=== PATIENT | male | born 1960 | race Caucasian/White ===

== ENCOUNTER 2025-04-03 11:20 | Outpatient (AMB) | payer MEDICARE, SELFPAY ==
--- NOTE | 2025-04-03 09:46 | A.OFFPC_ITS ---
Vital Signs 04/03/25 11:28 Height 5 ft 11.26 in Weight 232 lb BMI 32.1 BP 154/74 H Blood Pressure Location Lt brachial Position Sitting Respiration 20 Pulse 73 Pulse Source Pulse Oximeter Temp 97.3 F Temp Source Temporal Artery Scan Pulse Oximetry (%) 93 Oxygen Delivery Method Room Air Intake Visit Reasons: New Patient/ Establish Care Mechanical Technician Required: No Accompanied by: Self / Same As Patient Allergies No Known Allergies Allergy (Unknown, Verified 04/03/25 09:46) Medication List - Last Reconciled 04/03/25 by Krishna Parada MD atorvastatin 40 mg PO DAILY fluoxetine 60 mg PO QAM ibuprofen (IBU) mg PO multivitamin 1 tab PO DAILY Tobacco use date assessed: 04/03/25 Fall risk assessment: No Falls in past year Last assessed Fall Risk: 04/03/25 Dental Screening Dental Screen Date: 04/03/25 Did you have a dental visit in the last 12 months?: No Did you have a dental problem in the last 6 months where you did not have access to dental care?: Yes Was dental information given to patient?: Patient has dentist HPI HPI Comments History of Present Illness Details The patient is a 64-year-old male presenting for a new patient visit and an annual physical examination. He reports a past medical history of high cholesterol, kidney stones, and depression, for which he takes a medication but questions the diagnosis. The patient has a 40-year history of smoking. He started in the 1980s, smoking one pack per day for about 10 years, then gradually reduced his use to the current level of two to three cigarettes per day, equating to about a pack a week. He notes he can go for two or three weeks without a cigarette. He reports an increase in urinary frequency, particularly nocturia, waking up two times per night to urinate, which is an increase from once per night a few years ago. He denies straining and notes that his symptoms are exacerbated by coffee and beer consumption and improve when he keeps his fluid intake down. Family history is significant for a father who of a heart attack and an older brother who was recently diagnosed with Alzheimer's disease. Regarding substance use, he drinks about a six-pack of beer per week, typically over the weekend, and denies any illicit drug use. The patient reports no surgeries. His last colonoscopy was approximately five years ago, and he is due for another. Medical History: - Hypercholesterolemia - History of nephrolithiasis - History of depression Surgical History: - No surgeries reported Medications: - Unspecified medication for depression Family History: - Father: of a heart attack. - Brother: Recently diagnosed with Alzhe ewa's disease. - No family history of diabetes or cance rs reported. Diagnostic Results: - Blood Pressure: 154/74 mmHg (today). Social History: - Tobacco Use: Current smoker with a 40- year history; he now smokes about a pack a week (2-3 cigarettes per day), having cut down from a pack a day for about 10 years. - Alcohol Use: Drinks a six-pack of beer per week, consumed over the weekend. - Substance Use: Denies use of heroin, m arijuana, or cocaine. - Employment: Has a varied work history, including sales, warehouse work, and working in a [employer]. - Weight: Reports a weight loss of appro ximately 15 pounds over the last couple of years, from 245 lbs to 230 lbs. [facility] Medical History (Updated 04/03/25 @ 11:59 by Krishna Parada MD) Lower urinary tract symptoms Hyperlipidemia Hypertension Tobacco use disorder, continuous Annual physical exam Social History Housing: House Patient Tobacco Use Status: Current someday Tobacco user Tobacco use type: Cigarette Cigarettes Per Day: 2 Years Smoked: off and on for 40 years e-Cigarette/Vaping Use: Never Used service: No Current occupational status: unemployed Questionnaire PHQ-9 Over the last 2 weeks, how often have you been bothered by any of the following problems? 1. Little interest or pleasure in doing things: not at all 2. Feeling down, depressed, or hopeless: not at all 3. Trouble falling or staying asleep, or sleeping too much: not at all 4. Feeling tired or having little energy: not at all 5. Poor appetite or overeating: not at all 6. Feeling bad about yourself - or that you are a failure or have let yourself or your family down: not at all 7. Trouble concentrating on things, such as reading the newspaper or watching television: not at all 8. Moving or speaking so slowly that other people could have noticed. Or the opposite - being so fidgety or restless that you have been moving around a lot more than usual: not at all 9. Thoughts that you would be better off or of hurting yourself in some way: not at all Total score: 0 Depression Screening Interpretation: Negative Depression Screening Done: Yes 13770 - PHQ-9 Billing: Yes Source: Developed by Drs. Roby Lewis, Wendy Dillon, Mendoza Norton and colleagues, with an educational [place] from [employer]. Thrive Questionnaire Date Thrive assessed: 04/03/25 I am a: Patient What is your living situation today?: I have a steady place to live Within the past 12 months, did the food you bought not last and you didn't have the money to get more?: Never true Within the past 12 months, did you worry whether your food would run out before you got money to buy more?: Never true Do you have trouble paying for medicines?: No Do you have trouble getting transportation to medical appointments?: No Do you have trouble paying your heating and electricity bill?: No Do you have trouble taking care of your child, family member or friend?: No Do you have trouble with day-to-day activities such as bathing, preparing meals, shopping, managing finances, etc.?: No Are you currently unemployed and looking for a job?: No Are you interested in more education?: No THRIVE Score: 0 AUDIT C Alcohol Use Questionnaire (AUDIT-C) 1. How often do you have a drink containing alcohol?: 2-4 times a month 2. How many drinks containing alcohol do you have on a typical day when you are drinking?: 3 or 4 3. How often do you have six or more drinks on one occasion?: Never (rarely) Total Score: 3 Score Reviewed/Action Taken: Yes LAURA-7 AMB Questionnaire LAURA-7 Date LAURA - 7 assessed: 04/03/25 Feeling nervous, anxious, or on edge: 0 = Not at all Not being able to stop or control worryin = Not at all Worrying too much about different things: 0 = Not at all Trouble relaxin = Not at all Being so restless that it is hard to sit still: 0 = Not at all Becoming easily annoyed or irritable: 0 = Not at all Feeling afraid as if something awful might happen: 0 = Not at all Total LAURA-7 score (0-4 normal; 5-9 mild; 10-14 moderate; 15-21 severe): 0 Source: Developed by Drs. Roby Lewis, Wendy Dillon, Mendoza Norton and colleagues, with an educational virginia from [employer]. LAURA-7 Assessment Billing LAURA-7 Assessment Tool: LAURA-7 Assessment 53356 Review of Systems Narrative - Constitutional: Denies unintentional weight loss; reports losing about 15 pounds over the last couple years. - Genitourinary: Reports increased urinary frequency and nocturia (twice per night). - Psychiatric: Reports a very good mood; denies feeling down, depressed, or anxious. - GI: Reports normal bowel movements. - Skin: Reports easy bruising. - Musculoskeletal: Denies leg swelling. - Allergic/Immunologic: Denies medication and seasonal allergies. All systems reviewed & are unremarkable except as reviewed in HPI and above Physical exam (Primary Care) Vital Signs: Last Vital Signs Temp 97.3 F 04/03/25 11:28 Pulse 73 04/03/25 11:28 Resp 20 04/03/25 11:28 BP 154/74 H 04/03/25 11:28 Pulse Ox 93 04/03/25 11:28 Oxygen Delivery Method Room Air 04/03/25 11:28 BMI result Body Mass Index 32.1 Tobacco/Smoking Status: Tobacco use Status Tobacco use date assessed 04/03/25 04/03/25 09:47 Patient Tobacco Use Status Current someday Tobacco 04/03/25 11:31 Tobacco use type Cigarette 04/03/25 11:31 e-Cigarette/Vaping Use Never Used 04/03/25 11:31 Depression Screening Interpretation: Negative Narrative General: Alert and oriented, Well nourished, No acute distress. Eye: Pupils are equal, round and reactive to light, Intact accommodation, Extraocular movements are intact, Normal conjunctiva, Vision unchanged. HENT: Normocephalic, Atraumatic, Tympanic membranes are clear, Normal hearing, Oral mucosa is moist, No pharyngeal erythema, Ear canals patent. Respiratory: Lungs CTA bilaterally, No wheeze, Respirations are non-labored. Cardiovascular: Regular rate, Regular rhythm, S1 auscultated, S2 auscultated, No murmur, Good pulses equal in all extremities, Normal peripheral perfusion, No edema. Gastrointestinal: Soft, Non-tender, Non-distended, Normal bowel sounds, No organomegaly. Musculoskeletal: Normal range of motion, Normal strength, No tenderness, No swelling, No deformity, Normal gait. Integumentary: Warm, Dry, [place], Intact. Neurologic: Alert, Oriented, Normal sensory, Normal motor function, No focal defects, Cranial Nerves II-XII are grossly intact, Normal deep tendon reflexes. Psychiatric: Cooperative, Appropriate mood & affect, Normal judgment. Coding Level of Care Code New Pt Level 4 (86009) New Pt Prev Care >65yr (15882) Diagnoses Primary hypertension I10 Hypertension type: primary hypertension Tobacco use disorder, continuous F17.209 Other hyperlipidemia E78.49 Hyperlipidemia type: other hyperlipidemia Lower urinary tract symptoms R39.9 Annual physical exam Z00.00 Additional Codes PHQ-9 - 28341 - PHQ-9 Billing: Yes ([id number]) LAURA-7 Assessment Billing - LAURA-7 Assessment Tool: LAURA-7 Assessment 07976 ([id number]) Comment [id number] Assessment & Plan Assessment & Plan (1) Hypertension: Comment: - The patient has a new diagnosis of hypertension with a reading of 154/74 mmHg. - This is concerning, given his family history of heart disease and concurrent hyperlipidemia. - He will be started on amlodipine 2.5 mg daily. - He is instructed to monitor his blood pressure at home for two weeks and bring a log to his follow-up visit. - The dose will be adjusted if his pressures remain elevated. Code(s): I10 - Essential (primary) hypertension Category: Medical Qualifiers: Hypertension type: primary hypertension Qualified Code(s): I10 - Essential (primary) hypertension (2) Tobacco use disorder, continuous: Comment: - The patient has a significant, approximately [id number] smoking history, which qualifies him for lung cancer screening. - A referral for a low-dose CT scan of the lungs will be placed. - He was counseled on the importance of complete smoking cessation. - Nicotine replacement therapy with reaq-hep-[id number] patches was offered, and the patient will consider this option. Code(s): F17.209 - Nicotine dependence, unspecified, with unspecified nicotine-induced disorders Category: Medical (3) Hyperlipidemia: Comment: Being managed with atorvastatin 40mg QHS by her prevoius PCP. Will obtain lipid panel today Code(s): E78.5 - Hyperlipidemia, unspecified Category: Medical Qualifiers: Hyperlipidemia type: other hyperlipidemia Qualified Code(s): E78.49 - Other hyperlipidemia (4) Lower urinary tract symptoms: Comment: - The patient reports nocturia and increased urinary frequency, likely due to benign prostatic hyperplasia and behavioral factors. - The initial management will be behavioral changes, including reducing fluid intake 4-5 hours before bedtime and ensuring complete bladder emptying. - If there is no improvement at his two-week follow-up, medical therapy will be considered. Code(s): R39.9 - Unspecified symptoms and signs involving the genitourinary system Category: Medical (5) Annual physical exam: Comment: - A comprehensive set of labs, including electrolytes, CBC, blood sugar, lipid panel, hepatitis and HIV screening, urinalysis, syphilis test, TSH, and vitamin D levels, will be ordered. - The patient is due for a colonoscopy, as his last one was five years ago, and a referral will be placed. - The patient's COVID and flu vaccinations are up to date. - He is advised to maintain a healthy diet and stay active. - A follow-up visit is scheduled in two weeks to review lab results and his blood pressure log. Code(s): Z00.00 - Encounter for general adult medical examination without abnormal findings Category: Medical Plan: Health Maintenance: - Colon Cancer Screening: Patient is due for a colonoscopy, as his last was 5 years ago. A referral will be placed. - Lung Cancer Screening: Due to a significant smoking history (~18 pack-years), the patient qualifies for annual low-dose CT screening. A referral will be placed. - Immunizations: Patient reports he is up to date on COVID and flu shots, having received them within the last month. - Smoking Cessation: Patient was strongly counseled on quitting. Nicotine patch therapy was discussed as an option. - Healthy Lifestyle: Patient was advised to eat healthy, drink healthy, and remain active. - Laboratory Screening: Ordered a comprehensive panel including electrolytes, CBC, sugars, hepatitis panel, HIV, cholesterol, urinalysis, syphilis, thyroid, and vitamin D levels. Patient was informed and verbally consented to the use of an ambient scribe for clinic note documentation during this visit. Vital signs reviewed. Comprehensive history, review of systems, and physical exam completed. Medications, allergies, and problem list reviewed and updated. Counseling provided on nutrition, regular exercise, sleep hygiene, and moderation of alcohol use. Discussed age-appropriate screenings (mammogram, colonoscopy, Pap, bone density) and immunizations (flu, COVID, shingles, Tdap). Screened for depression, fall risk, and home safety; no current concerns. Discussed stress management, dental and vision care, and importance of ongoing preventive follow-up. Routine labs ordered for metabolic and lipid screening. Patient educated on healthy lifestyle and agrees with the plan. Plan I discussed with the patient that this was his first visit to the practice and would serve as an annual physical exam. We reviewed his new diagnosis of hypertension, noting his blood pressure of 154/74 mmHg, and the associated risks given his family history of heart disease and high cholesterol. I recommended starting amlodipine 2.5 mg daily and instructed him on home blood pressure monitoring for two weeks. We extensively discussed his significant smoking history of about 18 pack-years, which qualifies him for annual lung cancer screening with a low-dose CT scan, for which I am placing a referral. I strongly advised complete smoking cessation and discussed nicotine replacement therapy with zcmc-fkf-[id number] patches, which he is considering. We addressed his increased urinary frequency, explaining it is likely behavioral. I advised him to begin with behavioral modifications, including reducing fluid intake in the hours before bed, with a plan to consider medication if symptoms do not improve in two weeks. We also discussed overdue health maintenance, and he agreed to proceed with a colonoscopy, for which I will place a referral. I informed him that a comprehensive panel of bloodwork has been ordered and discussed follow-up in two weeks to review all results and his blood pressure log. Orders: Orders Comprehensive Met. Panel Today Z00.00 - Encounter for general adult medical examination without abnormal findings Hepatitis A,B,C Profile Today Z00.00 - Encounter for general adult medical examination without abnormal findings Lipid Panel Today Z00.00 - Encounter for general adult medical examination without abnormal findings TSH reflex Free T4 Today Z00.00 - Encounter for general adult medical examination without abnormal findings Vitamin D 25-OH Total Today Z00.00 - Encounter for general adult medical examination without abnormal findings Complete Blood Count Auto Diff Today Z00.00 - Encounter for general adult medical examination without abnormal findings Hemoglobin A1c Today Z00.00 - Encounter for general adult medical examination without abnormal findings HIV Ab/Ag Today Z00.00 - Encounter for general adult medical examination without abnormal findings Microalbumin, Random (w Creat) Today Z00.00 - Encounter for general adult medical examination without abnormal findings Syphilis Screen Today Z00.00 - Encounter for general adult medical examination without abnormal findings Referrals Lung Cancer Screening Referral F17.209 - Nicotine dependence, unspecified, with unspecified nicotine-induced disorders Open Access Screening Colonoscopy Referral Z12.11 - Encounter for screening for malignant neoplasm of colon Medications: New fluoxetine 60 mg orally Take 1 in the AM & 2 in the PM; amlodipine 2.5 mg PO DAILY 30 tabs 0RF Patient Instructions: - You are being started on a new medication, amlodipine 2.5 mg, to be taken once every morning for high blood pressure. - Please purchase a blood pressure cuff from a pharmacy and check your blood pressure every day for the next two weeks. Please write down the readings and bring the log to your next appointment. - It is very important that you quit smoking. You can buy nicotine patches [id number]-coguhiw to help you with this. - To help with waking up at night to urinate, try to stop drinking fluids 4-5 ho urs before you go to bed and make sure to completely empty your bladder before sleeping. - Please go to the lab to have your blood drawn. All the orders have been sent. - You will be contacted to schedule a colonoscopy and a lung cancer screening (a CT scan of your chest). - Please follow up in the clinic in two weeks to review your lab results and blood pressure readings. - Continue to eat a healthy diet and stay active.
[2025-04-03 11:28] VITALS: BP 154/74; PULSE 73; RESP 20; TEMP 36.3; O2SAT 93; BMI 32.1
--- OUTSIDE RECORDS SUMMARY | 2025-04-03 14:05 | XMS_ITS | Patient Health Record ---
Author [facility] [place] Address [address] [address] Care Team Providers Care Telegraph Office Route Aide Name Role Phone Tamir Mccracken MD Primary Care Provider Ian Lazar Unavailable [phone] Reason For Referral No Information Medications Medication SIG (Take, Route, Fr equency, Duration) Notes Start Date End Date Status Fluoxetine Active Atorvastatin Calcium Active Vitamin D Active Aspirin Active Social History Tobacco Use: Social History Observation Description Date Details (start date - stop date) Current Smoker NA - NA Tobacco Use/Smoking Question Answer Notes Are you a: current smoker How often do you smoke cigarettes? every day How many cigarettes a day do you smoke? 6-10 How soon after you wake up d o you smoke your first cigarette? after 60 minutes Are you interested in quitting? Thinking about q uitting Additional Findings: Tobacco User Light cigarett e smoker ((1-9 cigs/day) Alcohol Screen Question Answer Notes Did you have a drink containing alcohol in the p ast year? Yes Points 0 Interpretation Negative Tobacco use other than smoking: Question Answer Notes Are you an other tobacco user? No Plan Of Treatment Pending Test Test Name Order Date X ray : Foot, left 2V 07/05/2016 X ray : Foot, right 2V 07/05/2016 X ray : Foot, left 3V 07/15/2014 [id number] Destruction, -07/15/2014 85156-Kijk Destruction, -07/05/2016 03712-Rppt Destruction, -08/02/2016 13072-Gehi Destruction, -06/01/2017 73344-Imdd Destruction, 06-0506/29/2017 04394-Hzbv Destruction, 06-0509/12/2017 90565-Ynwn Destruction, 06-0512/29/2017 Insurance Providers Payer Name Payer Address Payer Phone Subscriber Number Group Number Insured Name Patient Relationship to Insured Coverage Start Date Coverage End Date [facility] [address] [facility] [place] [id number] Jace Perez Self - patient is the insured Medical (General) History Medical History History ICD Code Measles Cholesterol Surgical History Surgery Date(Month/Year)
== END 2025-04-03 11:59 | disposition home or self-care (01) ==
PROVIDERS: PCP Student in an Organized Health Care Education/Training Program; Visit Provider Student in an Organized Health Care Education/Training Program
DX: Z00.00 Encounter for general adult medical examination without abnormal findings (principal); I10 Essential (primary) hypertension; F17.209 Nicotine dependence, unspecified, with unspecified nicotine-induced disorders; E78.49 Other hyperlipidemia; R39.9 Unspecified symptoms and signs involving the genitourinary system

== ENCOUNTER 2025-04-03 12:06 | Outpatient (REF) | payer MEDICARE, SELFPAY ==
[2025-04-03 13:38] LABS: MANUAL DIFF FLAG NO
[2025-04-03 13:40] LABS: Alanine Aminotransferase 64 U/L (0-40); Albumin Level 4.3 g/dL (3.5-5.0); Alkaline Phosphatase 104 U/L (39-117); Anion Gap 10 (12-20); Aspartate Amino Transferase 49 U/L (5-37); Blood Urea Nitrogen 15 mg/dL (9-16); Calcium 9.5 mg/dL (8.4-10.2); Carbon Dioxide 29 mmol/L (22-29); Chloride 107 mmol/L (96-108); Cholesterol 171 mg/dL (<200); Estimated Glomerular Filt Rate > 60; HDL Cholesterol 56 mg/dL (>40); Potassium 4.5 mmol/L (3.3-5.1); Sodium 141 mmol/L (135-145); Total Protein 7.0 g/dL (6.5-8.0); Triglycerides 56 mg/dL (<150)
[2025-04-03 13:46] LABS: Hematocrit 44.9 % (42.0-52.0); Hemoglobin 15.3 g/dl (14.0-18.0); Imm Gran Abs Auto 0.03 X10*3/uL (0.00-0.03); Imm Gran Pct Auto 0.4 % (0.0-0.4); Lymphocytes Absolute Auto 1.7 X10*3/uL (1.2-4.9); Mean Corpuscular HGB Conc 34.1 g/dl (31.0-36.0); Mean Corpuscular Hemoglobin 33.0 pg (27.0-33.0); Mean Corpuscular Volume 96.8 fL (80.0-98.0); NRBC Abs Auto 0.000 X10*3/uL (0.0-0.012); NRBC Pct Auto 0.0 /100WBC (0.0-0.2); Platelet Count 230 X10*3/uL (160-400); Red Blood Count 4.64 X10*6/uL (4.60-5.80); White Blood Count 6.9 X10*3/uL (4.8-10.8)
[2025-04-03 14:20] LABS: Microalbum/Creatinine Ratio Ur 7.9 ug/mg cr (<30)
[2025-04-04 03:36] LABS: Syphilis Screen Nonreactive (Nonreactive)
[2025-04-04 03:57] LABS: HBS Num1 1.49 mIU/mL (0-7.99); HBc Num1 0.05 S/CO (0.00-0.79); HBsAGNum1 0.42 S/CO (0.00-0.99); HIV Num 1 0.06 S/CO (0.00-0.99); Hepatitis A Antibody IgM 0.18 Index (0-0.79); Hepatitis B Surface Antigen Negative (Negative); ~HepC Num1 0.06 S/CO (0.00-0.79); ~Hepatitis A Antibody IgM Nonreactive (Nonreactive); ~Hepatitis B Surface Antibody NONREACTIVE (Nonreactive); ~Hepatitis C Antibody Nonreactive (Nonreactive)
== END 2025-04-03 12:07 | disposition home or self-care (01) ==
LOC: HO.10HDL 12:06
PROVIDERS: Visit Provider Student in an Organized Health Care Education/Training Program
DX: Z00.00 Encounter for general adult medical examination without abnormal findings (principal); E78.00 Pure hypercholesterolemia, unspecified; F32.A Depression, unspecified; F17.210 Nicotine dependence, cigarettes, uncomplicated; R35.1 Nocturia; I10 Essential (primary) hypertension; E78.49 Other hyperlipidemia; R74.8 Abnormal levels of other serum enzymes; Z13.1 Encounter for screening for diabetes mellitus
CPT/HCPCS: 36415; 80053; 80061; 82043; 82306; 82570; 83036; 84443; 85025; 86704; 86706; 86709; 86780; 86803; 87340; 87389; 96127; 99202; 99387

== ENCOUNTER 2025-04-17 10:07 | Outpatient (AMB) | payer MEDICARE, SELFPAY ==
--- NOTE | 2025-04-17 10:08 | A.OFFPC_ITS ---
Vital Signs 04/17/25 10:08 Height 5 ft 11.6 in Intake Visit Reasons: Annual Senior Credit Analyst Required: No Accompanied by: Self / Same As Patient Allergies No Known Allergies Allergy (Unknown, Verified 04/17/25 10:09) Medication List - Last Reconciled 04/17/25 by Krishna Parada MD atorvastatin 40 mg PO DAILY fluoxetine 60 mg orally Take 1 in the AM & 2 in the PM; ibuprofen (IBU) mg PO multivitamin 1 tab PO DAILY Tobacco use date assessed: 04/03/25 Dental Screening Dental Screen Date: 04/03/25 HPI HPI Comments History of Present Illness Details History of Present Illness The patient is a 64 year old individual presenting for a follow-up visit to review lab results and for medication management. The patient reports no prior history of high blood pressure, but the in-clinic reading was 150/80 mmHg. The patient has been monitoring blood pressure at home every other day, with stable readings including 122/78, 119/78, 124/82, and 121/78 mmHg. The patient was prescribed amlodipine 2.5 mg but has not started the medication due to concerns that the elevated readings are only occurring in the clinic setting. The patient's current medications include atorvastatin 40 mg, fluoxetine 60 mg, and a multivitamin. Recent lab results showed normal blood counts and electrolytes, but elevated liver enzymes, with an AST of 49 and an ALT of 64. A hepatitis panel was negative. Other labs showed a normal thyroid, a blood sugar of 5.1%, and an LDL cholesterol of 104. The patient reports drinking about six beers over a week, though consumption is not regular. The patient also reports a light smoking habit of one or two cigarettes a day. The patient notes feeling fine and sleeping okay after a recent relocation. Medical History: - Hyperlipidemia - History of treatment with fluoxetine Medications: - Atorvastatin 40 mg for hyperlipidemia - Fluoxetine 60 mg (one in the morning, two in the evening) - Multivitamin Diagnostic Results: - Labs: - Blood counts: Normal - Electrolytes: Normal - AST: 49 U/L - ALT: 64 U/L - Hepatitis panel: Negative - Thyroid function: Normal - Blood sugar: 5.1% - LDL cholesterol: 104 mg/dL Social History - Substance Use: The patient reports dri nking approximately six beers over the course of a week, although consumption patterns are variable. - Tobacco Use: The patient reports smoki ng one or two cigarettes per day. - Living Situation: Recently relocated a nd is currently getting settled. [facility] Medical History (Updated 04/17/25 @ 10:35 by Krishna Parada MD) Elevated liver enzymes White coat syndrome with hypertension Lower urinary tract symptoms Hyperlipidemia Hypertension Tobacco use disorder, continuous Annual physical exam Social History Housing: House Patient Tobacco Use Status: Current someday Tobacco user Tobacco use type: Cigarette Cigarettes Per Day: 2 Years Smoked: off and on for 40 years e-Cigarette/Vaping Use: Never Used service: No Current occupational status: unemployed Questionnaire PHQ-9 Over the last 2 weeks, how often have you been bothered by any of the following problems? 1. Little interest or pleasure in doing things: not at all 2. Feeling down, depressed, or hopeless: not at all 3. Trouble falling or staying asleep, or sleeping too much: not at all 4. Feeling tired or having little energy: not at all 5. Poor appetite or overeating: not at all 6. Feeling bad about yourself - or that you are a failure or have let yourself or your family down: not at all 7. Trouble concentrating on things, such as reading the newspaper or watching television: not at all 8. Moving or speaking so slowly that other people could have noticed. Or the opposite - being so fidgety or restless that you have been moving around a lot more than usual: not at all 9. Thoughts that you would be better off or of hurting yourself in some way: not at all Total score: 0 Depression Screening Interpretation: Negative Depression Screening Done: Yes Source: Developed by Drs. Roby Lewis, Wendy Dillon, Mendoza Norton and colleagues, with an educational [place] from [employer]. Thrive Questionnaire Date Thrive assessed: 04/03/25 AUDIT C Alcohol Use Questionnaire (AUDIT-C) 1. How often do you have a drink containing alcohol?: 2-3 times a week 2. How many drinks containing alcohol do you have on a typical day when you are drinking?: 1 or 2 3. How often do you have six or more drinks on one occasion?: Never Total Score: 3 Score Reviewed/Action Taken: Yes LAURA-7 AMB Questionnaire LAURA-7 Date LAURA - 7 assessed: 04/03/25 Source: Developed by Drs. Roby Lewis, Wendy Dillon, Mendoza Norton and colleagues, with an educational virgin[place] from [employer]. Review of Systems Narrative Review of Systems - General: Reports feeling good and denies any specific concerns. - Neurological: Reports sleeping okay. All systems reviewed & are unremarkable except as reviewed in HPI and above Physical exam (Primary Care) Tobacco/Smoking Status: Tobacco use Status Tobacco use date assessed 04/03/25 04/17/25 10:10 Patient Tobacco Use Status Current someday Tobacco 04/17/25 10:10 Tobacco use type Cigarette 04/17/25 10:10 e-Cigarette/Vaping Use Never Used 04/17/25 10:10 PHQ-9: PHQ-9 Score PHQ-9: Total score 0 04/17/25 10:36 Depression Screening Interpretation: Negative Thrive Assessment: Date of Thrive Assessment Date Thrive assessed 04/03/25 04/17/25 10:10 Narrative Physical Exam General: Alert and oriented, Well nourished, No acute distress. Eye: Pupils are equal, round and reactive to light, Intact accommodation, Extraocular movements are intact, Normal conjunctiva, Vision unchanged. HENT: Normocephalic, Atraumatic, Tympanic membranes are clear, Normal hearing, Oral mucosa is moist, No pharyngeal erythema, Ear canals patent. Respiratory: Lungs CTA bilaterally, No wheeze, Respirations are non-labored. Cardiovascular: Regular rate, Regular rhythm, S1 auscultated, S2 auscultated, No murmur, Good pulses equal in all extremities, Normal peripheral perfusion, No edema. Gastrointestinal: Soft, Non-tender, Non-distended, Normal bowel sounds, No organomegaly. Musculoskeletal: Normal range of motion, Normal strength, No tenderness, No swelling, No deformity, Normal gait. Integumentary: Warm, Dry, Dickens, Intact. Neurologic: Alert, Oriented, Normal sensory, Normal motor function, No focal defects, Cranial Nerves II-XII are grossly intact, Normal deep tendon reflexes. Psychiatric: Cooperative, Appropriate mood & affect, Normal judgment. Coding Level of Care Code Est Pt Level 4 (61151) Complex visit Add On G2211 Diagnoses White coat syndrome with hypertension I10 Elevated liver enzymes R74.8 Other hyperlipidemia E78.49 Hyperlipidemia type: other hyperlipidemia Tobacco use disorder, continuous F17.209 Assessment & Plan Assessment & Plan (1) White coat syndrome with hypertension: Comment: - The patient presents with an elevated in-office blood pressure of 150/80 mmHg but reports consistently normal readings at home, suggesting white coat hypertension. - The previously prescribed amlodipine, which the patient has not started, will be discontinued. - The patient is advised to continue monitoring blood pressure at home two to three times per week and to reduce dietary salt intake. Code(s): I10 - Essential (primary) hypertension Category: Medical (2) Elevated liver enzymes: Comment: - Recent labs show an AST of 49 and an ALT of 64. - The hepatitis panel was negative. - To investigate the cause, which could include fatty liver or alcohol use, an ultrasound of the liver has been ordered. - Follow-up will be arranged upon receipt of the results. Code(s): R74.8 - Abnormal levels of other serum enzymes Category: Medical (3) Hyperlipidemia: Comment: - The patient's LDL cholesterol is 104 mg/dL, which is borderline high. - The current atorvastatin 40 mg is effective and will be continued. Code(s): E78.5 - Hyperlipidemia, unspecified Category: Medical Qualifiers: Hyperlipidemia type: other hyperlipidemia Qualified Code(s): E78.49 - Other hyperlipidemia (4) Tobacco use disorder, continuous: Comment: - The patient reports smoking one to two cigarettes daily. - A prescription for a tapering nicotine patch will be re-sent to the pharmacy to aid in smoking cessation. - The mechanism and benefits were discussed, and the patient agreed to have the patch available. Code(s): F17.209 - Nicotine dependence, unspecified, with unspecified nicotine-induced disorders Category: Medical Plan: Health Maintenance: - Blood pressure monitoring: Advised to continue home monitoring 2-3 times per week. - Dietary modification: Advised to reduce salt intake to help manage blood pressure. - Smoking cessation: A prescription for nicotine patches will be provided to help the patient quit smoking. - Screening: A liver ultrasound has been ordered to evaluate elevated liver enzymes. - Follow-up: Recommended to return in six months. Patient was informed and verbally consented to the use of an ambient scribe for clinic note documentation during this visit. Plan I reviewed the patient's lab results and clinical status. We discussed the disparity between the in-office blood pressure of 150/80 mmHg and the patient's normal home readings, leading to a presumptive diagnosis of white coat hypertension. We agreed to stop the amlodipine prescription, and I instructed the patient to continue monitoring blood pressure at home 2-3 times a week and to reduce salt intake. We reviewed the lab work, which showed elevated liver enzymes (AST 49, ALT 64) but an otherwise normal panel, including a negative hepatitis screen. I explained that a liver ultrasound has been ordered to investigate further and that I will follow up with the results. We also discussed that the patient's LDL cholesterol is borderline high at 104 mg/dL, and we will continue the atorvastatin. I addressed the patient's tobacco use of 1-2 cigarettes per day and will resend a prescription for a tapering nicotine patch. I explained how the patch works to deliver nicotine without the harmful chemicals in cigarettes and can help wean the patient off the craving, and the patient agreed to have it available for use. A follow-up visit is scheduled for six months. Orders: Orders US abdomen limited Today R74.8 - Abnormal levels of other serum enzymes Medications: New nicotine apply 1-21 mg NICOTINE PATCH daily for 28 days; follow with 1-14 mg PATCH daily for 14 days, then 1-7mg PATCH daily for 14 days transdermal 56 patches 0RF Discontinued amlodipine Discontinued Reason: Doctor's Order 2.5 mg PO DAILY 30 tabs 0RF Patient Instructions: - You can stop taking the amlodipine prescription. - Please continue to check your blood pressure at home two or three times a week. - Try to lower the amount of salt in your food. - Continue taking atorvastatin for your cholesterol. - An ultrasound of your liver has been ordered to check on your liver enzymes. The imaging center will call you to schedule it. - A prescription for nicotine patches will be sent to your pharmacy. Using these can help you quit smoking. - Please schedule a follow-up appointment in six months.
== END 2025-04-17 10:29 | disposition home or self-care (01) ==
LOC: HO.HMCHD 10:07
PROVIDERS: PCP Student in an Organized Health Care Education/Training Program; Visit Provider Student in an Organized Health Care Education/Training Program
DX: I10 Essential (primary) hypertension (principal); R74.8 Abnormal levels of other serum enzymes; E78.49 Other hyperlipidemia; F17.209 Nicotine dependence, unspecified, with unspecified nicotine-induced disorders

== ENCOUNTER → 2025-04-17 10:07 | Outpatient (BNVA) | payer MEDICARE, SELFPAY | PROVIDERS: PCP Student in an Organized Health Care Education/Training Program; Visit Provider Student in an Organized Health Care Education/Training Program | DX: I10 Essential (primary) hypertension (principal); R74.8 Abnormal levels of other serum enzymes; E78.49 Other hyperlipidemia; F17.209 Nicotine dependence, unspecified, with unspecified nicotine-induced disorders | CPT/HCPCS: 96127; 99212 ==